=== PATIENT | female | born 1955 | race Two or more races ===

== ENCOUNTER 2023-02-06 08:51 | Outpatient (CLI) | payer OTHER | END 2023-02-06 08:57 | disposition home or self-care (01) | LOC: NUCLEAR 08:51 | PROVIDERS: ATTEND Specialist | DX: C50.511 Malignant neoplasm of lower-outer quadrant of right female breast (principal) | CPT/HCPCS: 78815; A9552 ==

== ENCOUNTER 2023-03-20 08:06 | Inpatient (IN) | payer OTHER ==
[~2023-03-20] VITALS: Ht 154.9 cm; Wt 61.2 kg
[2023-03-21 08:20] LABS: PH,URINE 5.5 (5.0-8.0); URINE APPEARANCE Clear; URINE BILIRRUBIN Negative (NEGATIVE); URINE BLOOD Small; URINE COLOR Dark Yellow; URINE EPITHELIAL CELLS 13.7 uL (0.0-38.8); URINE GLUCOSE Negative (NEGATIVE); URINE LEUKOCYTE Small; URINE NITRATE Negative; URINE PROTEIN Trace (NEGATIVE); URINE RBC 28.7 uL (0.0-20.8); URINE WBC 13.2 uL (0.0-23.2)
[2023-03-21 08:22] LABS: HEMATOCRIT 38.3 % (36.0-45.00); HEMOGLOBIN 13.1 g/dL (12.0-15.00); MEAN CELL VOLUME 88.9 fL (80.00-100.00); MEAN CORPUSCULAR HEMOGLOBIN 30.4 pg (27.00-32.0); MEAN CORPUSCULAR HGB CONC 34.2 g/dl (32.0-36.0); PLATELET COUNT 235 K/uL (150-450); RED CELL DISTRIBUTION WIDTH 14.2 % (11.5-14.5)
[2023-03-21] MEDS ORDERED: ZOLOFT100 MG PO (08:35)
[2023-03-21 09:00] LABS: ALBUMIN 3.3 gm/dL (3.4-5.0); BILIRUBIN TOTAL 0.36 mg/dL (0.3-1.2); CALCIUM 8.4 mg/dL (8.5-10.1); CREATININE SERUM 0.8 mg/dL (0.55-1.02); GFR 71.33; GLOBULINA 3.5 G/DL (2.4-3.5); POTASSIUM 4.28 mEq/L (3.5-5.1); TOTAL PROTEIN 6.8 gm/dL (6.4-8.2)
[2023-03-21 09:17] LABS: INR 0.97; PROTHROMBIN TIME 10.2 SECONDS (9.0-11.5)
[2023-03-29] MEDS ORDERED: RAMIPRIL10 MG (09:51)
[2023-03-29] MEDS ORDERED: EZETIMIBE10 MG (09:51)
[2023-03-29] MEDS ORDERED: VITAMIN D3250 MCG (09:51)
[2023-03-29] MEDS ORDERED: ESTRADIOL1 MG (09:51)
[2023-03-29] MEDS ORDERED: GABAPENTIN300 M2 (09:51)
[2023-03-29] MEDS ORDERED: CLONAZEPAM1 MG (09:51)
[2023-03-29] MEDS ORDERED: NABUMETONE750 MG (09:51)
[2023-03-29] MEDS ORDERED: OMEPRAZOLE40 MG (09:51)
[2023-03-29] MEDS ORDERED: MEDROXYPROGEST2.5 MG (09:51)
[2023-03-29] MEDS ORDERED: ZOLPIDEM TARTRA10 MG (09:51)
== END 2023-03-29 12:46 | disposition home or self-care (01) | DRG 583 ==
LOC: O/R 03-28 06:05 → SURH 03-28 06:05
PROVIDERS: ADMIT Specialist; ATTEND Specialist
PROC: 0HTT0ZZ Resection of Right Breast, Open Approach (ICD-10-PCS; principal; 2023-03-28 12:30)
DX: D05.11 Intraductal carcinoma in situ of right breast (principal); Z20.822 Contact with and (suspected) exposure to COVID-19